=== PATIENT | male | born 1950 | race Caucasian/White ===

== ENCOUNTER 2018-11-08 17:43 | Emergency (ER) | payer OTHER ==
[2018-11-08 18:05] VITALS: BP 191/96
--- NOTE | 2018-11-09 01:01 | ER ---
HISTORY OF PRESENT ILLNESS: The patient is a 68-year-old male who comes in to the emergency room today because he had a ground level fall and hit his head when he slipped on some ice. He thinks he had possibly some loss of consciousness, he is unsure because he was unconscious. He does have a fairly recent history of head injury and in fact was just released last week from concussion precautions to go back to work by his primary, who is Yesenia Bustillos. He has been only at work a week and today he slipped again and hit his head again. He does have an abrasion to the top of the head. He feels he has a contusion to the top of the head and some swelling, he comes in for evaluation. He is not sure if he was knocked out or if he was for how long but he assumes he was knocked out. No neck pain. No bleeding or clear drainage from his ears, nose or mouth. No dental or tongue injury. No chest pain, shortness of breath. He has been taking tramadol for frostbite to his hands which occurred during the first time he fell and was knocked out and he ended up sustaining frostbite to bilateral hands, right worse than left. He denies any alcohol or drug use, although he does use cigarettes. No bowel or bladder changes. No incontinence. No bleeding except at the top of his head where he abraded it. PAST MEDICAL HISTORY: Significant for recent head trauma and fall and ended up with loss of consciousness, ended up with a concussion. He was off work with postconcussive instructions. He otherwise denies any pertinent medical history. CURRENT MEDICATIONS: Denied. ALLERGIES: Denied. REVIEW OF SYSTEMS: Knew he had trauma with a fairly recent history of a previous concussion. No changes in vision or probable loss of consciousness. No nausea or vomiting. No chest pain, shortness of breath. No neck pain, back pain, pelvic pain, lower extremity pain, upper extremity pain. No incontinence, no neurologic changes. Please see HPI. SOCIAL HISTORY: He does use tobacco. This for many years. He denies any alcohol or substance abuse. OBJECTIVE: Vital Signs: He is afebrile. Heart rate is initially 105, blood pressure 191/96, he is ambulatory, respiratory rate 14, oxygen is 97% on room air. General: Pleasant. HEENT: No Garcia signs. No raccoon eyes. Normal speech. Talkative, interactive. Mucous membranes moist. He does have a contusion to the top of his head, a mild abrasion, it is cleansed, it is already scabbed. There are no sutures or repair required. Neck: Nontender and unremarkable. No crepitus. No focal tenderness. No subcutaneous emphysema. Trachea is midline. Chest: Clear. It is nontender. Back: Nontender. Extremities: Upper extremities have good range of motion and function. Lower extremities, he is ambulatory and denies pain. He is a and O x3. GCS of 15. Head CT and cervical spine CT did not show any acute fractures or changes. His wound on his head was dressed. ASSESSMENT: 1. Ground level fall. 2. Closed head injury with CT not showing any acute or new changes. Also CT of cervical spine does not show any new changes. 3. A fairly recent history of closed head injury with concussion and loss of consciousness. PLAN: Advice patient extremely and critically important to avoid further falls or head trauma as repeated head trauma could be very serious and even lead to . He absolutely must stay with a family member or responsible dog over the next several days and he states he has somebody to come pick him up and he will be staying with him. Keep hydrated. [place] diet. I did refill his tramadol until he can follow up in clinic with his primary. He was given instructions on postconcussive syndrome. [facility] /[id number]
== END 2018-11-08 19:08 | disposition home or self-care (01) ==
LOC: DL.ED 17:43
DX: S09.90XA Unspecified injury of head, initial encounter (principal); W19.XXXA Unspecified fall, initial encounter
CPT/HCPCS: 70450; 72125; 99284-25

== ENCOUNTER 2020-06-29 07:22 | Day surgery (SDC) | payer OTHER, MEDICARE ==
[~2020-06-29 07:22] MED LIST: Midazolam 1 MG/ML 2 ML SDV ONE; fentaNYL 100 MCG/2 ML SDV ONE
[2020-06-29] MEDS ORDERED: fentaNYL 100 MCG/2 ML SDV IV ONE ×3 (07:23→08:09)
[2020-06-29] MEDS ORDERED: Midazolam 1 MG/ML 2 ML SDV IV ONE ×3 (07:23→08:10)
[2020-06-29] MEDS ORDERED: Dextrose 5%-0.45% NaCl 1,000 ML IV SCH (07:50)
--- NOTE | 2020-06-29 09:22 | OR ---
DATE: 06/29/2020 PROCEDURE: Esophagogastroduodenoscopy and multiple pinch biopsies. INSTRUMENT USED: GIF-HQ190 Olympus video panendoscope. PREMEDICATIONS: No oral or topical anesthesia used. Fentanyl 100 mcg intravenous, Versed 2 mg intravenous. Nasal O2 cannula. The procedure was done under pulse oximetry, BP recording, and threat monitoring analyst. INDICATION: The patient with persistent abdominal pain and Hemoccult positive stools unexplained, on acid suppressants. Esophagogastroduodenoscopy is performed for detection of any active erosive lesions. Monk esophagus and/or malignancy also under consideration, H pylori status to be determined, endoscopic hemostasis therapy if needed. DESCRIPTION OF PROCEDURE: The scope was passed with ease. Adequate visualization of the esophagus was made from proximal to distal areas. No upper esophageal lesions identified. No distal esophageal stricture. No uphill or downhill esophageal varices. No Heidy-Brandon tear. No evidence of erosive esophagitis by Rincon criteria. No esophageal polyp or tumor mass identified. Z-line was seen at around 40 cm distal to the oral verge, configuration consistent with grade 1 by ZAP classification. No proximal gastric varices noted. Gastric fundus examination by retroflexion showed no polypoid lesions. No gastric ulcer, malignant mass, or vascular ectasia identified. Patchy erythema of the gastric antral mucosa was noted and also erosion was noted without bleeding from it. Duodenal bulb showed 1 cm sized benign-appearing ulcer without bleeding from it. Visualized second part of the duodenum was unremarkable. Multiple pinch biopsies were taken from the gastric antrum and proximal body and sent for PyloriTek test for H pylori, and if negative in an hour, the tissue is to be sent for histopathology. No bleeding was noted from any of the visualized areas at the completion of examination. Photographs were taken of duodenal bulb, gastric antrum, fundus, and distal esophagus. IMPRESSION: 1. Active duodenal ulcer. 2. Gastric antral erosion. The patient tolerated the procedure well. [facility] /[id number]
[2020-06-29 12:44] VITALS: BP 153/84; PULSE 82
== END 2020-06-29 10:24 | disposition home or self-care (01) ==
LOC: DL.ENDO 07:22
PROVIDERS: ATTEND Internal Medicine Gastroenterology
DX: K31.89 Other diseases of stomach and duodenum (principal); I78.1 Nevus, non-neoplastic; K25.9 Gastric ulcer, unspecified as acute or chronic, without hemorrhage or perforation; K26.9 Duodenal ulcer, unspecified as acute or chronic, without hemorrhage or perforation; E83.52 Hypercalcemia; F17.210 Nicotine dependence, cigarettes, uncomplicated; Z98.890 Other specified postprocedural states
CPT/HCPCS: 43239; 87077; J2250; J3010; J7042; 88305

== ENCOUNTER 2020-06-30 05:54 | Day surgery (SDC) | payer OTHER, MEDICARE ==
[~2020-06-30 05:54] MED LIST changes: +Dextrose 5%-0.45% NaCl 1,000 ML IV SCH; -Midazolam 1 MG/ML 2 ML SDV ONE; +Sodium Chloride 0.9% 10 ML Syringe FLUSH PRN; -fentaNYL 100 MCG/2 ML SDV ONE
[2020-06-30] MEDS ORDERED: Midazolam 1 MG/ML 2 ML SDV IV ONE ×7 (05:55→07:04)
[2020-06-30] MEDS ORDERED: fentaNYL 100 MCG/2 ML SDV IV ONE ×3 (05:55→06:48)
[2020-06-30] MEDS ORDERED: Midazolam 1 MG/ML 2 ML SDV ONE (06:15)
[2020-06-30] MEDS ORDERED: fentaNYL 100 MCG/2 ML SDV ONE (06:15)
--- NOTE | 2020-06-30 07:55 | OR ---
DATE: 06/30/2020 PROCEDURE: Total colonoscopy, narrow band imaging, and multiple cold snare polypectomies. INSTRUMENT USED: PCF-H190DL Olympus video colonoscope. PREMEDICATIONS: Fentanyl 100 mcg intravenous, Versed 4 mg intravenous. Nasal O2 cannula. The procedure was done under pulse oximetry, BP recording, and cardiac monitoring. INDICATION: The patient has hemoccult positive stools. Colonoscopic examination is done for detection of any polypoid lesions and removal, endoscopic hemostasis therapy if needed. DESCRIPTION OF PROCEDURE: Initial rectal exam was unremarkable. Rigid anoscopy showed small internal hemorrhoids without bleeding from them. Colonoscope was passed with ease. Diminutive benign-appearing polyps were noted in the rectum and sigmoid colon. Photograph was taken of the rectal polyp. NBI view was obtained. Multiple cold snare polypectomies were done. The tissues were retrieved and sent for histopathology. A few scattered diverticula were noted in the distal left colon along with deformity. The scope was passed with ease up to the ileocecal area. Photographs were taken of the normal appearing cecum, identified by landmarks of appendiceal orifice and double-bulged ileocecal folds. No bleeding was noted from any of the visualized areas at the commencement of the examination. The bowel preparation was found to be adequate. Mears scale 2 in all the regions. Total score 6. No stricture. No vascular ectasia. No large isolated ulcerations seen. No evidence of diffuse inflammatory bowel disease in the form of friability, contact bleeding, or ulcerations. Probing the proximal sides of folds and flexures using adequate distention and clearing up the stool material, withdrawal of the scope was made. Cecum to rectum time over 6 minutes. No bleeding was noted from any of the visualized areas at the completion of examination. IMPRESSION: 1. Internal hemorrhoids. 2. Diverticulosis. 3. Diminutive rectosigmoid polyps. The patient tolerated the procedure well. [facility] /[id number] JOELLEN
[2020-06-30 09:04] VITALS: PULSE 79
[2020-06-30 09:20] VITALS: BP 132/73
== END 2020-06-30 09:25 | disposition home or self-care (01) ==
LOC: DL.ENDO 05:54
PROVIDERS: ATTEND Internal Medicine Gastroenterology
DX: K63.5 Polyp of colon (principal); K62.1 Rectal polyp; K64.8 Other hemorrhoids; K57.30 Diverticulosis of large intestine without perforation or abscess without bleeding; Z98.890 Other specified postprocedural states; F17.210 Nicotine dependence, cigarettes, uncomplicated; E83.52 Hypercalcemia; D75.1 Secondary polycythemia
CPT/HCPCS: 45385; J2250; J3010; J7042

== ENCOUNTER 2021-09-22 12:50 | Emergency (ER) | payer OTHER, MEDICARE ==
[2021-09-22 13:17] VITALS: BP 149/74; PULSE 102
[2021-09-22 13:51] LABS: CORONAVIRUS COVID-19 NAA NEGATIVE (NEGATIVE); RESPIRATORY SYNCYTIAL VIR NAA NEGATIVE (NEGATIVE)
[2021-09-22] MEDS ORDERED: methylPREDNISolone Sodium Succinate 125 MG/2 ML SDV IVPUSH ONE (14:44)
[2021-09-22] MEDS ORDERED: Albuterol/Ipratropium 3.0-0.5 MG/3 ML Neb Soln NEB ONE (14:44)
[2021-09-22 15:27] LABS: ANION GAP 11.8 mEq/L (7-13)
[2021-09-22] MEDS ORDERED: Albuterol 6.7 GM Inhaler INH ONE (15:32)
== END 2021-09-22 15:40 | disposition home or self-care (01) ==
LOC: DL.ED 12:50
DX: J44.1 Chronic obstructive pulmonary disease with (acute) exacerbation (principal); I10 Essential (primary) hypertension; K21.9 Gastro-esophageal reflux disease without esophagitis; Z72.0 Tobacco use; Z79.899 Other long term (current) drug therapy; Z20.822 Contact with and (suspected) exposure to COVID-19
CPT/HCPCS: 0241U; 36415; 71045; 80053; 85025; 96374; 99285; A9270; J2930; J7620-GY